=== PATIENT | male | born 1955 | race Caucasian/White ===

== ENCOUNTER 2024-02-24 03:34 | Outpatient (CLI) | payer MEDICARE, SELFPAY ==
[2024-02-24 10:30] LABS: Abs Immature Grans 0.04 10^3/uL (0.0-0.06); Absolute Basophil Count 0.09 10^3/uL (0.0-0.2); Absolute Eosinophil Count 0.25 10^3/uL (0.0-0.7); Absolute Lymphocyte Count 1.89 10^3/uL (1.2-3.4); Absolute Monocyte Count 0.65 10^3/uL (0.1-0.8); Absolute Neutrophil Count 4.32 10^3/uL (1.2-6.7); Basophils % 1.2 %; Eosinophils % 3.5 %; HCT 35.7 % (40.0-50.0); HGB 12.3 g/dL (13.5-17.5); Immature Grans % 0.6 %; Lymphocytes % 26.1 %; MCH 29.4 pg (27.0-33.0); MCHC 34.5 % (32.0-36.0); MCV 85 fL (80-95); MPV 10.1 fL (8.0-11.0); Neutrophils % 59.6 %; Platelet Count 229 10^3/uL (130-400); RBC 4.18 10^6/uL (4.36-5.78); RDW 13.8 % (11.8-14.1); RDW-SD 42.8 fL; WBC 7.24 10^3/uL (4.4-10.8)
[2024-02-24 10:51] LABS: ALT 32 U/L (16-63); AST 19 U/L (15-37); Albumin 3.7 g/dL (3.4-5.0); Alkaline Phosphatase 70 U/L (46-116); Anion Gap 11.2 mmol/L (3-11); BUN 12 mg/dL (7-18); Bilirubin, Total 0.39 mg/dL (0.2-1.0); CO2 24.8 mmol/L (21.0-32.0); CREATININE 0.9 mg/dL (0.70-1.30); Calcium 9.1 mg/dL (8.5-10.1); Chloride 106 mmol/L (98-107); Estimated GFR 93.61 (mL/min/1.73m2); Glucose 107 mg/dL (74-106); Magnesium 2.1 mg/dL (1.8-2.4); Potassium 3.8 mmol/L (3.5-5.1); Sodium 142 mmol/L (136-145); Total Protein 7.3 g/dL (6.4-8.2)
== END 2024-02-24 03:35 | disposition home or self-care (01) ==
LOC: LBO 03:34
PROVIDERS: Visit Provider Internal Medicine Medical Oncology
DX: C34.2 Malignant neoplasm of middle lobe, bronchus or lung (principal)
CPT/HCPCS: 36415; 80053; 83735; 85025

== ENCOUNTER 2024-03-02 03:10 | Outpatient (CLI) | payer MEDICARE, SELFPAY ==
[2024-03-02 09:35] LABS: Abs Immature Grans 0.05 10^3/uL (0.0-0.06); Absolute Basophil Count 0.07 10^3/uL (0.0-0.2); Absolute Eosinophil Count 0.14 10^3/uL (0.0-0.7); Absolute Lymphocyte Count 1.01 10^3/uL (1.2-3.4); Absolute Monocyte Count 0.32 10^3/uL (0.1-0.8); Absolute Neutrophil Count 3.84 10^3/uL (1.2-6.7); Basophils % 1.3 %; Eosinophils % 2.6 %; HGB 11.6 g/dL (13.5-17.5); Immature Grans % 0.9 %; Lymphocytes % 18.6 %; MCH 29.5 pg (27.0-33.0); MCHC 34.1 % (32.0-36.0); MCV 87 fL (80-95); MPV 10.3 fL (8.0-11.0); Monocytes % 5.9 %; Neutrophils % 70.7 %; Platelet Count 204 10^3/uL (130-400); RBC 3.93 10^6/uL (4.36-5.78); RDW 13.3 % (11.8-14.1); RDW-SD 42.3 fL; WBC 5.43 10^3/uL (4.4-10.8)
[2024-03-02 09:57] LABS: ALT 28 U/L (16-63); AST 13 U/L (15-37); Albumin 3.7 g/dL (3.4-5.0); Alkaline Phosphatase 71 U/L (46-116); Anion Gap 10.5 mmol/L (3-11); BUN 15 mg/dL (7-18); Bilirubin, Total 0.32 mg/dL (0.2-1.0); CO2 26.5 mmol/L (21.0-32.0); CREATININE 0.8 mg/dL (0.70-1.30); Calcium 9.1 mg/dL (8.5-10.1); Chloride 105 mmol/L (98-107); Glucose 113 mg/dL (74-106); Potassium 3.7 mmol/L (3.5-5.1); Sodium 142 mmol/L (136-145); Total Protein 6.9 g/dL (6.4-8.2)
== END 2024-03-02 03:11 | disposition home or self-care (01) ==
LOC: LBO 03:10
PROVIDERS: Visit Provider Internal Medicine Medical Oncology
DX: C34.2 Malignant neoplasm of middle lobe, bronchus or lung (principal)
CPT/HCPCS: 36415; 80053; 83735; 85025

== ENCOUNTER 2024-03-09 02:28 | Outpatient (CLI) | payer MEDICARE, SELFPAY ==
[2024-03-09 09:03] LABS: Abs Immature Grans 0.03 10^3/uL (0.0-0.06); Absolute Basophil Count 0.05 10^3/uL (0.0-0.2); Absolute Eosinophil Count 0.11 10^3/uL (0.0-0.7); Absolute Lymphocyte Count 0.73 10^3/uL (1.2-3.4); Absolute Monocyte Count 0.35 10^3/uL (0.1-0.8); Absolute Neutrophil Count 2.76 10^3/uL (1.2-6.7); Basophils % 1.2 %; Eosinophils % 2.7 %; HCT 33.8 % (40.0-50.0); HGB 11.4 g/dL (13.5-17.5); Immature Grans % 0.7 %; Lymphocytes % 18.1 %; MCH 29.3 pg (27.0-33.0); MCHC 33.7 % (32.0-36.0); MCV 87 fL (80-95); MPV 9.9 fL (8.0-11.0); Monocytes % 8.7 %; Neutrophils % 68.6 %; Platelet Count 170 10^3/uL (130-400); RBC 3.89 10^6/uL (4.36-5.78); RDW 13.8 % (11.8-14.1); RDW-SD 42.9 fL; WBC 4.03 10^3/uL (4.4-10.8)
[2024-03-09 09:19] LABS: ALT 30 U/L (16-63); AST 15 U/L (15-37); Albumin 3.6 g/dL (3.4-5.0); Alkaline Phosphatase 68 U/L (46-116); Anion Gap 6.4 mmol/L (3-11); BUN 15 mg/dL (7-18); Bilirubin, Total 0.47 mg/dL (0.2-1.0); CO2 28.6 mmol/L (21.0-32.0); CREATININE 0.7 mg/dL (0.70-1.30); Calcium 8.9 mg/dL (8.5-10.1); Chloride 101 mmol/L (98-107); Estimated GFR 100.99 (mL/min/1.73m2); Glucose 106 mg/dL (74-106); Potassium 3.8 mmol/L (3.5-5.1); Sodium 136 mmol/L (136-145); Total Protein 6.9 g/dL (6.4-8.2)
== END 2024-03-09 02:29 | disposition home or self-care (01) ==
LOC: LBO 02:28
PROVIDERS: Visit Provider Internal Medicine Medical Oncology
DX: C34.2 Malignant neoplasm of middle lobe, bronchus or lung (principal)
CPT/HCPCS: 36415; 80053; 83735; 85025

== ENCOUNTER 2024-03-16 04:41 | Outpatient (CLI) | payer MEDICARE, SELFPAY ==
[2024-03-16 10:41] LABS: HCT 31.1 % (40.0-50.0); HGB 10.9 g/dL (13.5-17.5); MCH 29.6 pg (27.0-33.0); MCV 85 fL (80-95); MPV 9.9 fL (8.0-11.0); Platelet Count 173 10^3/uL (130-400); RBC 3.68 10^6/uL (4.36-5.78); RDW 14.2 % (11.8-14.1); RDW-SD 42.9 fL; WBC 3.68 10^3/uL (4.4-10.8)
[2024-03-16 10:56] LABS: ALT 30 U/L (16-63); AST 13 U/L (15-37); Albumin 3.5 g/dL (3.4-5.0); Alkaline Phosphatase 69 U/L (46-116); Anion Gap 8.8 mmol/L (3-11); BUN 17 mg/dL (7-18); Bilirubin, Total 0.45 mg/dL (0.2-1.0); CO2 27.2 mmol/L (21.0-32.0); CREATININE 0.7 mg/dL (0.70-1.30); Calcium 8.9 mg/dL (8.5-10.1); Chloride 101 mmol/L (98-107); Estimated GFR 100.99 (mL/min/1.73m2); Glucose 107 mg/dL (74-106); Magnesium 1.9 mg/dL (1.8-2.4); Potassium 3.9 mmol/L (3.5-5.1); Sodium 137 mmol/L (136-145); Total Protein 6.8 g/dL (6.4-8.2)
[2024-03-16 11:04] LABS: Abs Immature Grans 0.06 10^3/uL (0.0-0.06); Absolute Basophil Count 0.06 10^3/uL (0.0-0.2); Absolute Eosinophil Count 0.06 10^3/uL (0.0-0.7); Absolute Lymphocyte Count 0.45 10^3/uL (1.2-3.4); Absolute Monocyte Count 0.42 10^3/uL (0.1-0.8); Absolute Neutrophil Count 2.58 10^3/uL (1.2-6.7); Basophils % 1.7 %; Eosinophils % 1.7 %; Immature Grans % 1.7 %; Lymphocytes % 12.4 %; Monocytes % 11.6 %; Neutrophils % 70.9 %
== END 2024-03-16 04:42 | disposition home or self-care (01) ==
LOC: LBO 04:41
PROVIDERS: Visit Provider Internal Medicine Medical Oncology
DX: C34.2 Malignant neoplasm of middle lobe, bronchus or lung (principal)
CPT/HCPCS: 36415; 80053; 85027; 83735; 85007

== ENCOUNTER 2024-03-23 02:41 | Outpatient (CLI) | payer MEDICARE, SELFPAY ==
[2024-03-23 08:30] LABS: Abs Immature Grans 0.06 10^3/uL (0.0-0.06); Absolute Basophil Count 0.05 10^3/uL (0.0-0.2); Absolute Eosinophil Count 0.06 10^3/uL (0.0-0.7); Absolute Lymphocyte Count 0.41 10^3/uL (1.2-3.4); Absolute Neutrophil Count 2.91 10^3/uL (1.2-6.7); Basophils % 1.3 %; Eosinophils % 1.5 %; HCT 29.7 % (40.0-50.0); HGB 10.3 g/dL (13.5-17.5); Immature Grans % 1.5 %; Lymphocytes % 10.5 %; MCH 29.9 pg (27.0-33.0); MCHC 34.7 % (32.0-36.0); MCV 86 fL (80-95); MPV 9.5 fL (8.0-11.0); Monocytes % 10.3 %; Neutrophils % 74.9 %; Platelet Count 149 10^3/uL (130-400); RBC 3.44 10^6/uL (4.36-5.78); RDW 14.5 % (11.8-14.1); RDW-SD 43.7 fL; WBC 3.89 10^3/uL (4.4-10.8)
[2024-03-23 09:03] LABS: ALT 26 U/L (16-63); AST 10 U/L (15-37); Albumin 3.4 g/dL (3.4-5.0); Alkaline Phosphatase 67 U/L (46-116); Anion Gap 11.1 mmol/L (3-11); BUN 14 mg/dL (7-18); Bilirubin, Total 0.24 mg/dL (0.2-1.0); CO2 23.9 mmol/L (21.0-32.0); CREATININE 0.8 mg/dL (0.70-1.30); Calcium 8.9 mg/dL (8.5-10.1); Chloride 104 mmol/L (98-107); Glucose 97 mg/dL (74-106); Magnesium 1.8 mg/dL (1.8-2.4); Potassium 3.9 mmol/L (3.5-5.1); Sodium 139 mmol/L (136-145); Total Protein 6.6 g/dL (6.4-8.2)
== END 2024-03-23 02:42 | disposition home or self-care (01) ==
LOC: LBO 02:41
PROVIDERS: Visit Provider Internal Medicine Medical Oncology
DX: C34.2 Malignant neoplasm of middle lobe, bronchus or lung (principal)
CPT/HCPCS: 36415; 80053; 83735; 85025

== ENCOUNTER 2024-03-30 02:06 | Outpatient (CLI) | payer MEDICARE, SELFPAY ==
[2024-03-30 08:34] LABS: Abs Immature Grans 0.04 10^3/uL (0.0-0.06); Absolute Basophil Count 0.04 10^3/uL (0.0-0.2); Absolute Eosinophil Count 0.04 10^3/uL (0.0-0.7); Absolute Lymphocyte Count 0.28 10^3/uL (1.2-3.4); Absolute Monocyte Count 0.32 10^3/uL (0.1-0.8); Absolute Neutrophil Count 2.45 10^3/uL (1.2-6.7); Basophils % 1.3 %; Eosinophils % 1.3 %; HCT 28.5 % (40.0-50.0); HGB 10.1 g/dL (13.5-17.5); Immature Grans % 1.3 %; Lymphocytes % 8.8 %; MCH 30.4 pg (27.0-33.0); MCHC 35.4 % (32.0-36.0); MCV 86 fL (80-95); MPV 9.7 fL (8.0-11.0); Monocytes % 10.1 %; Neutrophils % 77.2 %; Platelet Count 140 10^3/uL (130-400); RBC 3.32 10^6/uL (4.36-5.78); RDW-SD 45.3 fL; WBC 3.17 10^3/uL (4.4-10.8)
[2024-03-30 09:03] LABS: ALT 26 U/L (16-63); AST 10 U/L (15-37); Albumin 3.4 g/dL (3.4-5.0); Alkaline Phosphatase 65 U/L (46-116); Anion Gap 12.4 mmol/L (3-11); BUN 12 mg/dL (7-18); CO2 25.6 mmol/L (21.0-32.0); CREATININE 0.7 mg/dL (0.70-1.30); Calcium 8.6 mg/dL (8.5-10.1); Chloride 101 mmol/L (98-107); Estimated GFR 100.99 (mL/min/1.73m2); Glucose 121 mg/dL (74-106); Magnesium 1.6 mg/dL (1.8-2.4); Potassium 3.4 mmol/L (3.5-5.1); Sodium 139 mmol/L (136-145); Total Protein 6.4 g/dL (6.4-8.2)
== END 2024-03-30 02:07 | disposition home or self-care (01) ==
LOC: LBO 02:07
PROVIDERS: Visit Provider Internal Medicine Medical Oncology
DX: C34.2 Malignant neoplasm of middle lobe, bronchus or lung (principal)
CPT/HCPCS: 36415; 80053; 83735; 85025

== ENCOUNTER 2024-04-21 15:48 | Outpatient (CLI) | payer MEDICARE, BC, SELFPAY ==
[2024-04-21 08:16] LABS: Abs Immature Grans 0.03 10^3/uL (0.0-0.06); Absolute Basophil Count 0.06 10^3/uL (0.0-0.2); Absolute Monocyte Count 0.81 10^3/uL (0.1-0.8); Absolute Neutrophil Count 2.03 10^3/uL (1.2-6.7); Basophils % 1.7 %; Eosinophils % 2.8 %; HCT 30.4 % (40.0-50.0); HGB 10.5 g/dL (13.5-17.5); Immature Grans % 0.8 %; Lymphocytes % 16.5 %; MCH 31.5 pg (27.0-33.0); MCHC 34.5 % (32.0-36.0); MCV 91 fL (80-95); MPV 9.2 fL (8.0-11.0); Monocytes % 22.3 %; Neutrophils % 55.9 %; Platelet Count 221 10^3/uL (130-400); RBC 3.33 10^6/uL (4.36-5.78); RDW 19.4 % (11.8-14.1); RDW-SD 62.6 fL; WBC 3.63 10^3/uL (4.4-10.8)
[2024-04-21 08:28] LABS: ALT 34 U/L (16-63); AST 26 U/L (15-37); Albumin 3.3 g/dL (3.4-5.0); Alkaline Phosphatase 65 U/L (46-116); Anion Gap 5.7 mmol/L (3-11); BUN 8 mg/dL (7-18); Bilirubin, Total 0.38 mg/dL (0.2-1.0); CO2 28.3 mmol/L (21.0-32.0); CREATININE 0.8 mg/dL (0.70-1.30); Calcium 8.4 mg/dL (8.5-10.1); Chloride 105 mmol/L (98-107); Glucose 107 mg/dL (74-106); Magnesium 1.6 mg/dL (1.8-2.4); Potassium 3.7 mmol/L (3.5-5.1); Sodium 139 mmol/L (136-145); Total Protein 6.5 g/dL (6.4-8.2)
== END 2024-04-21 15:49 | disposition home or self-care (01) ==
LOC: LBO 15:53
PROVIDERS: Visit Provider Internal Medicine Medical Oncology
DX: C34.32 Malignant neoplasm of lower lobe, left bronchus or lung (principal); C34.2 Malignant neoplasm of middle lobe, bronchus or lung
CPT/HCPCS: 36415; 80053; 83735; 85025

== ENCOUNTER 2024-05-18 02:14 | Outpatient (CLI) | payer MEDICARE, BC, SELFPAY ==
[2024-05-18 13:33] LABS: Abs Immature Grans 0.05 10^3/uL (0.0-0.06); Absolute Basophil Count 0.08 10^3/uL (0.0-0.2); Absolute Eosinophil Count 0.22 10^3/uL (0.0-0.7); Absolute Lymphocyte Count 0.81 10^3/uL (1.2-3.4); Absolute Monocyte Count 1.09 10^3/uL (0.1-0.8); Absolute Neutrophil Count 8.02 10^3/uL (1.2-6.7); Basophils % 0.8 %; Eosinophils % 2.1 %; HCT 33.2 % (40.0-50.0); HGB 11.4 g/dL (13.5-17.5); Immature Grans % 0.5 %; Lymphocytes % 7.9 %; MCH 32.3 pg (27.0-33.0); MCHC 34.3 % (32.0-36.0); MCV 94 fL (80-95); MPV 9.6 fL (8.0-11.0); Monocytes % 10.6 %; Neutrophils % 78.1 %; Platelet Count 262 10^3/uL (130-400); RBC 3.53 10^6/uL (4.36-5.78); RDW 15.3 % (11.8-14.1); RDW-SD 53.6 fL; WBC 10.27 10^3/uL (4.4-10.8)
[2024-05-18 14:01] LABS: ALT 24 U/L (16-63); AST 18 U/L (15-37); Albumin 3.5 g/dL (3.4-5.0); Alkaline Phosphatase 82 U/L (46-116); Anion Gap 8.7 mmol/L (3-11); BUN 12 mg/dL (7-18); Bilirubin, Total 0.36 mg/dL (0.2-1.0); CO2 26.3 mmol/L (21.0-32.0); CREATININE 0.8 mg/dL (0.70-1.30); Calcium 9.1 mg/dL (8.5-10.1); Chloride 103 mmol/L (98-107); Glucose 122 mg/dL (74-106); Potassium 3.6 mmol/L (3.5-5.1); Sodium 138 mmol/L (136-145); TSH 0.93 uIU/mL (0.36-3.74); Total Protein 7.3 g/dL (6.4-8.2)
[2024-05-18 15:44] LABS: FREE T4 0.82 ng/dL (0.76-1.46)
== END 2024-05-18 02:15 | disposition home or self-care (01) ==
PROVIDERS: Visit Provider Nurse Practitioner Family
DX: C34.2 Malignant neoplasm of middle lobe, bronchus or lung (principal)
CPT/HCPCS: 36415; 80053; 83735; 84439; 84443; 85025

== ENCOUNTER 2024-06-15 02:03 | Outpatient (CLI) | payer MEDICARE, BC, SELFPAY ==
[2024-06-15 13:45] LABS: Abs Immature Grans 0.04 10^3/uL (0.0-0.06); Absolute Basophil Count 0.09 10^3/uL (0.0-0.2); Absolute Eosinophil Count 0.21 10^3/uL (0.0-0.7); Absolute Lymphocyte Count 0.71 10^3/uL (1.2-3.4); Absolute Neutrophil Count 7.55 10^3/uL (1.2-6.7); Eosinophils % 2.2 %; HCT 35.3 % (40.0-50.0); Immature Grans % 0.4 %; Lymphocytes % 7.6 %; MCH 31.3 pg (27.0-33.0); MCV 92 fL (80-95); MPV 9.4 fL (8.0-11.0); Monocytes % 8.5 %; Neutrophils % 80.3 %; Platelet Count 260 10^3/uL (130-400); RBC 3.84 10^6/uL (4.36-5.78); RDW 12.8 % (11.8-14.1); RDW-SD 43.3 fL
[2024-06-15 14:08] LABS: ALT 25 U/L (16-63); AST 17 U/L (15-37); Albumin 3.5 g/dL (3.4-5.0); Alkaline Phosphatase 93 U/L (46-116); Anion Gap 10.4 mmol/L (3-11); BUN 14 mg/dL (7-18); CO2 27.6 mmol/L (21.0-32.0); CREATININE 0.9 mg/dL (0.70-1.30); Calcium 9.6 mg/dL (8.5-10.1); Chloride 102 mmol/L (98-107); Estimated GFR 93.03 (mL/min/1.73m2); Glucose 134 mg/dL (74-106); Magnesium 1.9 mg/dL (1.8-2.4); Potassium 3.5 mmol/L (3.5-5.1); Sodium 140 mmol/L (136-145); TSH 0.59 uIU/mL (0.36-3.74); Total Protein 7.3 g/dL (6.4-8.2)
[2024-06-15 22:12] LABS: T4, Free 1.2 ng/dL (0.8-2.2)
== END 2024-06-15 02:04 | disposition home or self-care (01) ==
PROVIDERS: Visit Provider Internal Medicine Medical Oncology
DX: C34.2 Malignant neoplasm of middle lobe, bronchus or lung (principal)
CPT/HCPCS: 36415; 80053; 83735; 84439; 84443; 85025

== ENCOUNTER 2024-07-27 03:04 | Outpatient (CLI) | payer MEDICARE, BC, SELFPAY ==
[2024-07-27 13:40] LABS: Abs Immature Grans 0.04 10^3/uL (0.0-0.06); Absolute Basophil Count 0.06 10^3/uL (0.0-0.2); Absolute Eosinophil Count 0.11 10^3/uL (0.0-0.7); Absolute Lymphocyte Count 0.98 10^3/uL (1.2-3.4); Absolute Monocyte Count 0.76 10^3/uL (0.1-0.8); Absolute Neutrophil Count 6.28 10^3/uL (1.2-6.7); Basophils % 0.7 %; Eosinophils % 1.3 %; HCT 35.6 % (40.0-50.0); HGB 11.9 g/dL (13.5-17.5); Immature Grans % 0.5 %; Lymphocytes % 11.9 %; MCH 29.2 pg (27.0-33.0); MCHC 33.4 % (32.0-36.0); MCV 88 fL (80-95); MPV 9.5 fL (8.0-11.0); Monocytes % 9.2 %; Neutrophils % 76.4 %; Platelet Count 216 10^3/uL (130-400); RBC 4.07 10^6/uL (4.36-5.78); RDW 13.1 % (11.8-14.1); RDW-SD 41.3 fL; WBC 8.23 10^3/uL (4.4-10.8)
[2024-07-27 14:00] LABS: ALT 26 U/L (16-63); AST 19 U/L (15-37); Albumin 3.6 g/dL (3.4-5.0); Alkaline Phosphatase 82 U/L (46-116); Anion Gap 9.4 mmol/L (3-11); BUN 12 mg/dL (7-18); Bilirubin, Total 0.4 mg/dL (0.2-1.0); CO2 26.6 mmol/L (21.0-32.0); CREATININE 0.7 mg/dL (0.70-1.30); Calcium 9.6 mg/dL (8.5-10.1); Chloride 102 mmol/L (98-107); Estimated GFR 100.37 (mL/min/1.73m2); Glucose 128 mg/dL (74-106); Potassium 3.6 mmol/L (3.5-5.1); Sodium 138 mmol/L (136-145); Total Protein 7.1 g/dL (6.4-8.2)
[2024-07-27 16:16] LABS: FREE T4 1.26 ng/dL (0.76-1.46); TSH 0.04 uIU/mL (0.36-3.74)
== END 2024-07-27 03:05 | disposition home or self-care (01) ==
PROVIDERS: Nurse Practitioner Family; Visit Provider Internal Medicine Medical Oncology
DX: Z79.899 Other long term (current) drug therapy (principal); C34.2 Malignant neoplasm of middle lobe, bronchus or lung
CPT/HCPCS: 36415; 80053; 83735; 84439; 84443; 85025

== ENCOUNTER 2024-08-24 04:34 | Outpatient (CLI) | payer MEDICARE, BC, SELFPAY ==
[2024-08-24 12:58] LABS: Abs Immature Grans 0.03 10^3/uL (0.0-0.06); Absolute Basophil Count 0.08 10^3/uL (0.0-0.2); Absolute Eosinophil Count 0.18 10^3/uL (0.0-0.7); Absolute Lymphocyte Count 0.96 10^3/uL (1.2-3.4); Absolute Monocyte Count 0.72 10^3/uL (0.1-0.8); Absolute Neutrophil Count 4.52 10^3/uL (1.2-6.7); Basophils % 1.2 %; Eosinophils % 2.8 %; HCT 34.5 % (40.0-50.0); HGB 11.9 g/dL (13.5-17.5); Immature Grans % 0.5 %; Lymphocytes % 14.8 %; MCH 28.8 pg (27.0-33.0); MCHC 34.5 % (32.0-36.0); MCV 84 fL (80-95); MPV 9.7 fL (8.0-11.0); Monocytes % 11.1 %; Neutrophils % 69.6 %; Platelet Count 225 10^3/uL (130-400); RBC 4.13 10^6/uL (4.36-5.78); RDW 14.1 % (11.8-14.1); RDW-SD 43.2 fL; WBC 6.49 10^3/uL (4.4-10.8)
[2024-08-24 13:12] LABS: ALT 25 U/L (16-63); AST 18 U/L (15-37); Albumin 3.7 g/dL (3.4-5.0); Alkaline Phosphatase 80 U/L (46-116); Anion Gap 6.9 mmol/L (3-11); BUN 13 mg/dL (7-18); Bilirubin, Total 0.4 mg/dL (0.2-1.0); CO2 27.1 mmol/L (21.0-32.0); CREATININE 0.7 mg/dL (0.70-1.30); Calcium 9.4 mg/dL (8.5-10.1); Chloride 102 mmol/L (98-107); Estimated GFR 100.37 (mL/min/1.73m2); Glucose 99 mg/dL (74-106); Magnesium 2.1 mg/dL (1.8-2.4); Potassium 3.9 mmol/L (3.5-5.1); Sodium 136 mmol/L (136-145); Total Protein 7.1 g/dL (6.4-8.2)
[2024-08-24 14:35] LABS: FREE T4 0.56 ng/dL (0.76-1.46); TSH 2.33 uIU/mL (0.36-3.74)
== END 2024-08-24 04:35 | disposition home or self-care (01) ==
LOC: LBO 04:34
PROVIDERS: Internal Medicine Medical Oncology; Visit Provider Nurse Practitioner Family
DX: Z79.899 Other long term (current) drug therapy (principal); C34.2 Malignant neoplasm of middle lobe, bronchus or lung
CPT/HCPCS: 36415; 80053; 83735; 84439; 84443; 85025

== ENCOUNTER 2024-09-21 02:26 | Outpatient (CLI) | payer MEDICARE, BC, SELFPAY ==
[2024-09-21 13:43] LABS: Abs Immature Grans 0.03 10^3/uL (0.0-0.06); Absolute Basophil Count 0.09 10^3/uL (0.0-0.2); Absolute Eosinophil Count 0.21 10^3/uL (0.0-0.7); Absolute Neutrophil Count 4.87 10^3/uL (1.2-6.7); Basophils % 1.3 %; HCT 33.9 % (40.0-50.0); HGB 11.6 g/dL (13.5-17.5); Immature Grans % 0.4 %; Lymphocytes % 15.7 %; MCH 29.3 pg (27.0-33.0); MCHC 34.2 % (32.0-36.0); MCV 86 fL (80-95); MPV 9.8 fL (8.0-11.0); Neutrophils % 69.6 %; Platelet Count 214 10^3/uL (130-400); RBC 3.96 10^6/uL (4.36-5.78); RDW 14.6 % (11.8-14.1); RDW-SD 45.8 fL
[2024-09-21 14:10] LABS: ALT 34 U/L (16-63); AST 28 U/L (15-37); Albumin 3.8 g/dL (3.4-5.0); Alkaline Phosphatase 85 U/L (46-116); Anion Gap 7.2 mmol/L (3-11); BUN 16 mg/dL (7-18); Bilirubin, Total 0.3 mg/dL (0.2-1.0); CO2 28.8 mmol/L (21.0-32.0); CREATININE 0.8 mg/dL (0.70-1.30); Chloride 102 mmol/L (98-107); FREE T4 0.19 ng/dL (0.76-1.46); Glucose 106 mg/dL (74-106); Potassium 3.5 mmol/L (3.5-5.1); Sodium 138 mmol/L (136-145); TSH 12.59 uIU/mL (0.36-3.74); Total Protein 7.1 g/dL (6.4-8.2)
== END 2024-09-21 02:27 | disposition home or self-care (01) ==
LOC: LBO 02:26
PROVIDERS: Internal Medicine Medical Oncology; Visit Provider Nurse Practitioner Family
DX: Z79.899 Other long term (current) drug therapy (principal); C34.2 Malignant neoplasm of middle lobe, bronchus or lung
CPT/HCPCS: 36415; 80053; 83735; 84439; 84443; 85025

== ENCOUNTER 2024-10-20 03:15 | Outpatient (CLI) | payer MEDICARE, BC, SELFPAY ==
[2024-10-20 10:26] LABS: Abs Immature Grans 0.04 10^3/uL (0.0-0.06); HCT 33.1 % (40.0-50.0); HGB 11.2 g/dL (13.5-17.5); Immature Grans % 0.6 %; MCH 29.4 pg (27.0-33.0); MCHC 33.8 % (32.0-36.0); MCV 87 fL (80-95); MPV 10.0 fL (8.0-11.0); Platelet Count 198 10^3/uL (130-400); RBC 3.81 10^6/uL (4.36-5.78); RDW 15.0 % (11.8-14.1); RDW-SD 47.8 fL; WBC 6.45 10^3/uL (4.4-10.8)
[2024-10-20 11:00] LABS: ALT 37 U/L (16-63); AST 24 U/L (15-37); Albumin 3.8 g/dL (3.4-5.0); Alkaline Phosphatase 81 U/L (46-116); Anion Gap 8.4 mmol/L (3-11); BUN 13 mg/dL (7-18); Bilirubin, Total 0.4 mg/dL (0.2-1.0); CO2 28.6 mmol/L (21.0-32.0); Calcium 8.9 mg/dL (8.5-10.1); Chloride 101 mmol/L (98-107); Estimated GFR 100.37 (mL/min/1.73m2); Glucose 103 mg/dL (74-106); Magnesium 2.0 mg/dL (1.8-2.4); Potassium 3.8 mmol/L (3.5-5.1); Sodium 138 mmol/L (136-145); TSH 7.43 uIU/mL (0.36-3.74); Total Protein 7.1 g/dL (6.4-8.2)
== END 2024-10-20 03:16 | disposition home or self-care (01) ==
LOC: LBO 03:15
PROVIDERS: Visit Provider Nurse Practitioner Family
DX: Z79.899 Other long term (current) drug therapy (principal); C34.2 Malignant neoplasm of middle lobe, bronchus or lung
CPT/HCPCS: 36415; 80053; 83735; 84439; 84443; 85025

== ENCOUNTER 2024-11-16 02:59 | Outpatient (CLI) | payer MEDICARE, BC, SELFPAY ==
[2024-11-16 10:38] LABS: Abs Immature Grans 0.03 10^3/uL (0.0-0.06); HCT 34.3 % (40.0-50.0); HGB 11.4 g/dL (13.5-17.5); Immature Grans % 0.4 %; MCH 29.4 pg (27.0-33.0); MCHC 33.2 % (32.0-36.0); MCV 88 fL (80-95); MPV 9.8 fL (8.0-11.0); Platelet Count 205 10^3/uL (130-400); RBC 3.88 10^6/uL (4.36-5.78); RDW 13.9 % (11.8-14.1); RDW-SD 44.7 fL; WBC 7.18 10^3/uL (4.4-10.8)
[2024-11-16 11:19] LABS: ALT 26 U/L (16-63); AST 21 U/L (15-37); Albumin 3.9 g/dL (3.4-5.0); Alkaline Phosphatase 88 U/L (46-116); Anion Gap 5.3 mmol/L (3-11); BUN 17 mg/dL (7-18); Bilirubin, Total 0.3 mg/dL (0.2-1.0); CO2 29.7 mmol/L (21.0-32.0); Calcium 9.1 mg/dL (8.5-10.1); Chloride 101 mmol/L (98-107); Estimated GFR 100.37 (mL/min/1.73m2); Glucose 120 mg/dL (74-106); Magnesium 2.2 mg/dL (1.8-2.4); Potassium 3.9 mmol/L (3.5-5.1); Sodium 136 mmol/L (136-145); TSH 5.36 uIU/mL (0.36-3.74); Total Protein 7.5 g/dL (6.4-8.2)
== END 2024-11-16 03:00 | disposition home or self-care (01) ==
LOC: LBO 02:59
PROVIDERS: Visit Provider Nurse Practitioner Family
DX: Z79.899 Other long term (current) drug therapy (principal); C34.2 Malignant neoplasm of middle lobe, bronchus or lung
CPT/HCPCS: 36415; 80053; 83735; 84439; 84443; 85025

== ENCOUNTER 2024-12-15 15:56 | Outpatient (CLI) | payer MEDICARE, BC, SELFPAY ==
[2024-12-15 13:21] LABS: Abs Immature Grans 0.03 10^3/uL (0.0-0.06); HCT 33.6 % (40.0-50.0); HGB 11.6 g/dL (13.5-17.5); Immature Grans % 0.4 %; MCH 30.3 pg (27.0-33.0); MCHC 34.5 % (32.0-36.0); MCV 88 fL (80-95); MPV 9.8 fL (8.0-11.0); Platelet Count 201 10^3/uL (130-400); RBC 3.83 10^6/uL (4.36-5.78); RDW 13.5 % (11.8-14.1); RDW-SD 43.8 fL; WBC 7.51 10^3/uL (4.4-10.8)
[2024-12-15 14:17] LABS: ALT 24 U/L (16-63); AST 20 U/L (15-37); Albumin 3.9 g/dL (3.4-5.0); Alkaline Phosphatase 77 U/L (46-116); Anion Gap 9.2 mmol/L (3-11); BUN 10 mg/dL (7-18); Bilirubin, Total 0.3 mg/dL (0.2-1.0); CO2 26.8 mmol/L (21.0-32.0); Calcium 9.2 mg/dL (8.5-10.1); Chloride 102 mmol/L (98-107); Estimated GFR 100.37 (mL/min/1.73m2); Glucose 117 mg/dL (74-106); Magnesium 2.2 mg/dL (1.8-2.4); Potassium 4.1 mmol/L (3.5-5.1); Sodium 138 mmol/L (136-145); TSH 4.91 uIU/mL (0.36-3.74); Total Protein 7.3 g/dL (6.4-8.2)
== END 2024-12-15 15:57 | disposition home or self-care (01) ==
LOC: LBO 15:56
PROVIDERS: Visit Provider Nurse Practitioner Family
DX: Z79.899 Other long term (current) drug therapy (principal); C34.2 Malignant neoplasm of middle lobe, bronchus or lung
CPT/HCPCS: 36415; 80053; 83735; 84439; 84443; 85025

== ENCOUNTER 2025-01-11 04:12 | Outpatient (CLI) | payer MEDICARE, BC, SELFPAY ==
[2025-01-11 09:29] LABS: Abs Immature Grans 0.03 10^3/uL (0.0-0.06); HCT 33.1 % (40.0-50.0); HGB 11.2 g/dL (13.5-17.5); Immature Grans % 0.5 %; MCH 29.6 pg (27.0-33.0); MCHC 33.8 % (32.0-36.0); MCV 88 fL (80-95); MPV 9.8 fL (8.0-11.0); Platelet Count 190 10^3/uL (130-400); RBC 3.78 10^6/uL (4.36-5.78); RDW 13.5 % (11.8-14.1); RDW-SD 43.4 fL; WBC 6.28 10^3/uL (4.4-10.8)
[2025-01-11 09:46] LABS: ALT 24 U/L (16-63); AST 20 U/L (15-37); Albumin 3.8 g/dL (3.4-5.0); Alkaline Phosphatase 73 U/L (46-116); Anion Gap 9.6 mmol/L (3-11); BUN 11 mg/dL (7-18); Bilirubin, Total 0.4 mg/dL (0.2-1.0); CO2 27.4 mmol/L (21.0-32.0); Calcium 9.4 mg/dL (8.5-10.1); Chloride 104 mmol/L (98-107); Estimated GFR 100.37 (mL/min/1.73m2); Glucose 109 mg/dL (74-106); Magnesium 2.3 mg/dL (1.8-2.4); Potassium 4.0 mmol/L (3.5-5.1); Sodium 141 mmol/L (136-145); TSH 6.42 uIU/mL (0.36-3.74); Total Protein 7.1 g/dL (6.4-8.2)
== END 2025-01-11 04:13 | disposition home or self-care (01) ==
LOC: LBO 04:12
PROVIDERS: Visit Provider Nurse Practitioner Family
DX: Z79.899 Other long term (current) drug therapy (principal); C34.2 Malignant neoplasm of middle lobe, bronchus or lung
CPT/HCPCS: 36415; 80053; 83735; 84439; 84443; 85025

== ENCOUNTER 2025-02-08 03:05 | Outpatient (CLI) | payer MEDICARE, BC, SELFPAY ==
[2025-02-08 10:51] LABS: Abs Immature Grans 0.04 10^3/uL (0.0-0.06); HCT 34.9 % (40.0-50.0); HGB 11.6 g/dL (13.5-17.5); Immature Grans % 0.5 %; MCH 29.0 pg (27.0-33.0); MCHC 33.2 % (32.0-36.0); MCV 87 fL (80-95); MPV 9.8 fL (8.0-11.0); Platelet Count 163 10^3/uL (130-400); RBC 4.00 10^6/uL (4.36-5.78); RDW 14.0 % (11.8-14.1); RDW-SD 44.8 fL; WBC 8.35 10^3/uL (4.4-10.8)
[2025-02-08 11:23] LABS: ALT 22 U/L (16-63); AST 15 U/L (15-37); Albumin 3.8 g/dL (3.4-5.0); Alkaline Phosphatase 74 U/L (46-116); Anion Gap 10.0 mmol/L (3-11); BUN 16 mg/dL (7-18); Bilirubin, Total 0.4 mg/dL (0.2-1.0); CO2 27.0 mmol/L (21.0-32.0); Calcium 8.8 mg/dL (8.5-10.1); Chloride 102 mmol/L (98-107); Estimated GFR 96.40 (mL/min/1.73m2); Glucose 121 mg/dL (74-106); Magnesium 2.2 mg/dL (1.8-2.4); Potassium 3.8 mmol/L (3.5-5.1); Sodium 139 mmol/L (136-145); TSH 7.03 uIU/mL (0.36-3.74); Total Protein 7.3 g/dL (6.4-8.2)
== END 2025-02-08 03:06 | disposition home or self-care (01) ==
LOC: LBO 03:05
PROVIDERS: Visit Provider Nurse Practitioner Family
DX: Z79.899 Other long term (current) drug therapy (principal)
CPT/HCPCS: 36415; 80053; 83735; 84439; 84443; 85025

== ENCOUNTER 2025-03-29 00:45 | Outpatient (CLI) | payer MEDICARE, BC, SELFPAY ==
[2025-03-29 09:01] LABS: Abs Immature Grans 0.04 10^3/uL (0.0-0.06); HCT 34.1 % (40.0-50.0); HGB 11.6 g/dL (13.5-17.5); Immature Grans % 0.6 %; MCH 29.4 pg (27.0-33.0); MCHC 34.0 % (32.0-36.0); MCV 86 fL (80-95); MPV 9.5 fL (8.0-11.0); Platelet Count 184 10^3/uL (130-400); RBC 3.95 10^6/uL (4.36-5.78); RDW 14.5 % (11.8-14.1); RDW-SD 45.8 fL; WBC 6.43 10^3/uL (4.4-10.8)
[2025-03-29 09:21] LABS: Magnesium 2.0 mg/dL (1.6-2.6)
[2025-03-29 09:22] LABS: ALT 16 U/L (10-49); AST 19 U/L (<34); Albumin 4.3 g/dL (3.2-5.0); Alkaline Phosphatase 61 U/L (46-116); Anion Gap 7.6 mmol/L (3-11); BUN 15 mg/dL (9-23); Bilirubin, Total 0.4 mg/dL (0.2-1.2); CO2 27.4 mmol/L (20.0-31.0); Calcium 9.0 mg/dL (8.3-10.6); Chloride 105 mmol/L (98-107); Glucose 105 mg/dL (74-106); Potassium 3.8 mmol/L (3.5-5.1); Sodium 140 mmol/L (136-145); Total Protein 7.0 g/dL (5.7-8.2)
[2025-03-29 09:25] LABS: TSH 7.70 uIU/mL (0.55-4.78)
== END 2025-03-29 00:46 | disposition home or self-care (01) ==
LOC: LBO 00:45
PROVIDERS: Visit Provider Nurse Practitioner Family
DX: Z79.899 Other long term (current) drug therapy (principal)
CPT/HCPCS: 36415; 80053; 83735; 84439; 84443; 85025